=== PATIENT | male | born 1970 | race Hispanic/Latino ===

== ENCOUNTER 2024-02-09 16:21 | Emergency (ER) | payer OTHER, BC ==
[~2024-02-09] VITALS: Ht 170.2 cm; Wt 99.8 kg
[2024-02-09 18:30] VITALS: BP 145/88; PULSE 80; RESP 16; O2SAT 97
[2024-02-09] MEDS ORDERED: IBUP-2070 PO (19:50)
== END 2024-02-09 20:55 | disposition home or self-care (01) ==
LOC: EDH 16:21
DX: S16.1XXA Strain of muscle, fascia and tendon at neck level, initial encounter (principal); X58.XXXA Exposure to other specified factors, initial encounter; S39.012A Strain of muscle, fascia and tendon of lower back, initial encounter; Y93.89 Activity, other specified; Y92.89 Other specified places as the place of occurrence of the external cause; Y99.8 Other external cause status
CPT/HCPCS: 72040; 72100